=== PATIENT | male | born 1960 | race Caucasian/White ===

== ENCOUNTER 2025-10-31 19:10 | Inpatient (IN) | payer OTHER ==
[~2025-10-31] VITALS: Ht 170.2 cm; Wt 74.9 kg
[2025-10-31 20:00] VITALS: BP 129/66; TEMP 98.1; O2SAT 100
[2025-10-31] MEDS ORDERED: SIMVASTATIN 40 MG TABLET PO SCH (22:00)
[2025-10-31] MEDS ORDERED: RIVA10TA PO (22:23)
[2025-10-31] MEDS: SIMVASTATIN 20 MG TABLET PO SCH (23:20)
[2025-11-01] VITALS (8 sets, daily range): BP systolic 113–138; BP diastolic 62–76; TEMP 97.5–98.2; O2SAT 97–100
[2025-11-01] MEDS: PANTOPRAZOLE 40 MG TABLET.DR PO SCH (07:33)
[2025-11-01 07:34] LABS: PLATELET COUNT (AUTO) 134 K/uL (150-450); RED BLOOD CELL COUNT(AUTO) 3.70 MIL/uL (4.5-6.0); RED CELL DISTRIBUTION WIDTH 14.3 % (11.5-15.0); WHITE BLOOD COUNT (AUTO) 5.9 K/uL (4.3-11.0)
[2025-11-01 08:23] LABS: CALCIUM, SERUM 8.9 mg/dL (8.5-10.1); CREATININE 1.3 mg/dL (0.6-1.3); SODIUM SERUM 144.0 mmol/L (136-145); UREA NITROGEN, BLOOD 22.0 mg/dL (7-18)
[2025-11-01 08:27] LABS: INR 1.23 (0.91-1.10)
[2025-11-01 08:48] LABS: APPEARANCE,URINE CLEAR (CLEAR); BLOOD, URINE TRACE-INTA Ery/uL (NEGATIVE); LEUKOCYTE ESTERASE ,URINE NEGATIVE (NEGATIVE); NITRITE, URINE NEGATIVE (NEGATIVE); UGLUCOSE NEGATIVE (NEGATIVE)
[2025-11-01 08:53] LABS: LDL 140.0 mg/dL (0-99)
[2025-11-01 08:56] LABS: ADD URINE CULTURE NO; SQUAMOUS EPITHELIAL CELL,UR Few /HPF (None Seen)
[2025-11-01] MEDS: ASPIRIN 81 MG TAB.CHEW PO SCH (09:26)
[2025-11-01] MEDS: RIVAROXABAN 10 MG TABLET PO SCH (09:29)
[2025-11-01] MEDS: LEVETIRACETAM (500MG) 500 MG in IV NS 0.9% 100 ML IV SCH (13:30)
[2025-11-02] VITALS (7 sets, daily range): BP systolic 118–139; BP diastolic 67–88; TEMP 97.7–98.2; O2SAT 96–98
[2025-11-02 07:46] LABS: ASPARTATE AMINOTRANSFERASE 12.0 U/L (15-37); CALCIUM, SERUM 8.4 mg/dL (8.5-10.1); CREATININE 1.0 mg/dL (0.6-1.3); PHOSPHORUS 3.4 mg/dL (2.5-4.9); SODIUM SERUM 142.0 mmol/L (136-145); TOTAL PROTEIN, SERUM 6.5 g/dL (6.4-8.2); UREA NITROGEN, BLOOD 21.0 mg/dL (7-18)
[2025-11-02 07:48] LABS: PLATELET COUNT (AUTO) 131 K/uL (150-450); RED BLOOD CELL COUNT(AUTO) 3.67 MIL/uL (4.5-6.0); RED CELL DISTRIBUTION WIDTH 14.2 % (11.5-15.0); WHITE BLOOD COUNT (AUTO) 5.7 K/uL (4.3-11.0)
[2025-11-02] MEDS: METOPROLOL TARTRATE 50 MG TABLET PO SCH (09:38)
[2025-11-03] VITALS: BP 133/73; TEMP 98.1; O2SAT 98
[2025-11-03 04:00] VITALS: BP 129/79; TEMP 97.9; O2SAT 99
[2025-11-03 06:57] LABS: PLATELET COUNT (AUTO) 149 K/uL (150-450); RED BLOOD CELL COUNT(AUTO) 3.84 MIL/uL (4.5-6.0); RED CELL DISTRIBUTION WIDTH 14.3 % (11.5-15.0); WHITE BLOOD COUNT (AUTO) 5.4 K/uL (4.3-11.0)
[2025-11-03 07:26] LABS: ASPARTATE AMINOTRANSFERASE 12.0 U/L (15-37); CALCIUM, SERUM 8.4 mg/dL (8.5-10.1); CREATININE 0.9 mg/dL (0.6-1.3); PHOSPHORUS 3.7 mg/dL (2.5-4.9); SODIUM SERUM 142.0 mmol/L (136-145); TOTAL PROTEIN, SERUM 6.6 g/dL (6.4-8.2); UREA NITROGEN, BLOOD 19.0 mg/dL (7-18)
[2025-11-03 08:00] VITALS: BP 115/84; TEMP 97.5; O2SAT 98
[2025-11-03 08:07] VITALS: BP 115/84
[2025-11-03] MEDS: SPIRONOLACTONE 25 MG TABLET PO SCH (09:20)
[2025-11-03] MEDS ORDERED: SPIR25TA6 PO (13:12)
[2025-11-03] MEDS ORDERED: LEVE250T2 PO (13:12)
[2025-11-03] MEDS ORDERED: SIMV-46 PO (13:12)
[2025-11-04] MEDS ORDERED: LEVETIRACETAM (250 MG) 250 MG TABLET PO SCH
== END 2025-11-03 14:50 | disposition home or self-care (01) | DRG 101 ==
LOC: TELE 19:10
PROVIDERS: ADMIT Nurse Practitioner Acute Care
DX: R56.9 Unspecified convulsions (principal); I69.354 Hemiplegia and hemiparesis following cerebral infarction affecting left non-dominant side; I65.1 Occlusion and stenosis of basilar artery; I50.32 Chronic diastolic (congestive) heart failure; I11.0 Hypertensive heart disease with heart failure; G25.3 Myoclonus; Z79.01 Long term (current) use of anticoagulants; Z95.2 Presence of prosthetic heart valve; I25.10 Atherosclerotic heart disease of native coronary artery without angina pectoris; Z95.0 Presence of cardiac pacemaker; Z95.1 Presence of aortocoronary bypass graft; Z79.82 Long term (current) use of aspirin; E78.5 Hyperlipidemia, unspecified
CPT/HCPCS: 36415; 70551-TC; 71045-TC; 80048-TC; 80053-TC; 80061-TC; 81001; 82607-TC; 83735-TC; 83921; 84100-TC; 84425; 84443-TC; 85025-TC; 85730-TC; 92526; 92611; 93307-TC; 93880-TC; 95819-TC; 97110-TC; 97116-TC; 97530-TC; 97535-TC; G0378; J1953; J7030; J7050